=== PATIENT | male | born 1965 | race Caucasian/White ===

== ENCOUNTER 2018-07-22 01:17 | Emergency (ER) | payer BC ==
[2018-07-22 01:41] VITALS: TEMP 98.8
--- NOTE | 2018-07-22 02:21 | ED.PDOC ---
History of Present Illness - General Chief Complaint: Chemical Exposure/Inhalation Stated Complaint: possible carbon monoxide exposure Time Seen by Provider: 07/22/18 02:03 Source: patient, family Exam Limitations: no limitations - History of Present Illness Initial Comments: Pt and his were at home when their CO detector alarmed about midnight. Pt has had dizziness and mild headache Timing/Duration: this evening Severity: mild EENT Location: other Prearrival Treatment: no prearrival treatment Improving Factors: rest Worsening Factors: nothing Associated Symptoms: other - mild nausea Allergies/Adverse Reactions: Allergies peanuts Allergy (Uncoded 07/22/18 01:42) Home Medications: Ambulatory Orders Losartan Potassium 25 mg PO DAILY 01/14/16 Fluoxetine HCl [Fluoxetine Hydrochloride] 5 mg PO DAILY #4 tab 03/25/16 Ondansetron Odt [Zofran ODT] 8 mg PO Q8H PRN #12 tab 03/25/16 Review of Systems - Review of Systems Constitutional: Denies: chills, fever EENTM: States: blurred vision Respiratory: Denies: cough, short of breath Cardiology: Denies: chest pain Gastrointestinal/Abdominal: States: nausea. Denies: vomiting Genitourinary: States: no symptoms reported Musculoskeletal: States: no symptoms reported Skin: States: no symptoms reported Neurological: States: headache. Denies: paresthesia, tingling Endocrine: States: no symptoms reported Hematologic/Lymphatic: States: no symptoms reported Past Medical History (General) - Patient Medical History Hx Seizures: No Hx Stroke: No Hx Dementia: No Hx Asthma: No Hx of COPD: No Hx Cardiac Disorders: No Hx Congestive Heart Failure: No Hx Pacemaker: No Hx Hypertension: Yes Hx Thyroid Disease: No Hx Diabetes: No Hx Gastroesophageal Reflux: No Hx Renal Disease: No Hx Cancer: No Hx of HIV: No Hx Hepatitis C: No Hx MRSA: No Surgical History: no surgical history - Vaccination History Hx Tetanus, Diphtheria Vaccination: Yes - 2016 Hx Influenza Vaccination: No Hx Pneumococcal Vaccination: No - Social History Hx Tobacco Use: No - Female History Patient : No Family Medical History - Family History Father Living Status: Still Living Hx Family Hypertension: Yes Physical Exam - Physical Exam General Appearance: Alert, Anxious, Comfortable Eye Exam: bilateral normal Nasal Exam: normal inspection Throat Exam: pharynx normal Neck: non-tender, full range of motion, supple Cardiovascular/Respiratory: regular rate, rhythm, normal breath sounds, no respiratory distress Neurologic: alert, normal mood/affect, oriented x 3 Skin Exam: normal color, warm/dry Progress - Progress Progress: 07/22/18 02:38 Carboxyhgb was 0.2 % Departure - Departure Clinical Impression: Carbon monoxide exposure Disposition: Discharge to Home or Self Care Departure Forms: ED Discharge - Pt. Copy, Patient Portal Self Enrollment Instructions: DI for Inhalation Injury Referrals: Jay Jay Meehan MD [Primary Care Provider] - 1-2 Weeks Home Medications: Ambulatory Orders Losartan Potassium 25 mg PO DAILY 01/14/16 Fluoxetine HCl [Fluoxetine Hydrochloride] 5 mg PO DAILY #4 tab 03/25/16 Ondansetron Odt [Zofran ODT] 8 mg PO Q8H PRN #12 tab 03/25/16
[2018-07-22 02:43] VITALS: BP 133/78; O2SAT 97
== END 2018-07-22 02:44 | disposition home or self-care (01) ==
LOC: ER 01:17
DX: T58.91XA Toxic effect of carbon monoxide from unspecified source, accidental (unintentional), initial encounter (principal); R42 Dizziness and giddiness; R51 Headache; I10 Essential (primary) hypertension; Z79.899 Other long term (current) drug therapy; Y92.009 Unspecified place in unspecified non-institutional (private) residence as the place of occurrence of the external cause

== ENCOUNTER 2019-05-10 13:43 | Inpatient (IN) | payer BC ==
--- NOTE | 2019-05-10 14:06 | ED.PDOC ---
History of Present Illness - General Stated Complaint: fever Time Seen by Provider: 05/10/19 13:49 Source: patient, RN notes reviewed, Vital Signs reviewed Additional Information: this is a 53 year old with history of hypertension, patient presents with fever, cough, chills, nasal congestion, symptoms began on Saturday, patient went to a clinic and was prescribed antibiotics and even with abx. Patient fever has not gone down patient flu text was negative patient denies weight loss, never been incarcerated and no recent travels patient admits cough, chills and diaphoresis no neck pain no history of cigarettes or electronic cigs - History of Present Illness Timing/Duration: other - since saturday Fever Severity/Quality: greater than 102 F Associated Symptoms: cough, diaphoresis, muscle aches - chills Review of Systems - Review of Systems Constitutional: States: chills, diaphoresis, fever. Denies: malaise, weakness EENTM: Denies: eye pain, blurred vision, tearing, double vision, ear pain, ear discharge, nose pain, nose congestion, throat pain, throat swelling, mouth pain, mouth swelling Respiratory: States: cough. Denies: orthopnea, short of breath, stridor, wheez ing Cardiology: Denies: chest pain, edema, palpitations, syncope Gastrointestinal/Abdominal: Denies: abdominal pain, constipation, diarrhea, nausea, vomiting Genitourinary: Denies: discharge, dysuria, frequency, hematuria, pain Musculoskeletal: Denies: back pain, gout, joint swelling, muscle pain, muscle stiffness, neck pain Skin: Denies: change in color, dryness, lesions, lumps Neurological: Denies: anxiety, depressed, emotional problems, headache, numbness, paresthesia, seizure, tingling, tremors, weakness Endocrine: Denies: intolerance to cold, increased hunger, increased thirst, increased urine, unexplained weight gain, unexplained weight loss Hematologic/Lymphatic: Denies: anemia, blood clots, easy bleeding, easy bruising, swollen glands Past Medical History (General) - Patient Medical History Hx Seizures: No Hx Stroke: No Hx Dementia: No Hx Asthma: No Hx of COPD: No Hx Cardiac Disorders: No Hx Congestive Heart Failure: No Hx Pacemaker: No Hx Hypertension: Yes Hx Thyroid Disease: No Hx Diabetes: No Hx Gastroesophageal Reflux: No Hx Renal Disease: No Hx Cancer: No Hx of HIV: No Hx Hepatitis C: No Hx MRSA: No - Vaccination History Hx Tetanus, Diphtheria Vaccination: Yes - 2016 Hx Influenza Vaccination: No Hx Pneumococcal Vaccination: No - Social History Hx Tobacco Use: No - Female History Patient : No Family Medical History - Family History Father Living Status: Still Living Hx Family Hypertension: Yes Physical Exam - Physical Exam General Appearance: Alert, Well Developed, Well Groomed, Well Hydrated, Well Nourished Eye Exam: bilateral normal ENT Exam: normal ENT inspection, hearing grossly normal, TMs normal, pharynx normal, nasal congestion Neck: non-tender, full range of motion, supple, normal inspection, trachea midline Respiratory: chest non-tender, lungs clear, normal breath sounds, no respiratory distress, no accessory muscle use Cardiovascular/Chest: normal peripheral pulses, regular rate, rhythm, no edema, no gallop, no JVD, no murmur Gastrointestinal/Abdominal: normal bowel sounds, non tender, soft, no organomegaly, no pulsatile mass, abnormal bowel sounds Extremity: normal range of motion, non-tender, normal inspection, no pedal edema, no calf tenderness Neurologic: customer trainer II-XII nml as tested, no motor/sensory deficits, alert, normal mood/affect, oriented x 3 Skin Exam: normal color Progress - Progress Progress: 05/10/19 14:40 this patient presents with fever, and cough and body aches, and diaphoresis, patient have been on antibiotics for 3 days and no improvement. Im concerned for viral syndrome, and even thought his flu was negative, I will check for flu again, patient has no meningeal signs and no risk factors for tuberculosis. Patient did not exhibit any SIRS by vitals signs lactic and blood cultures will be also ordered. patient was no leukocytosis, but has very significant infiltrates on xrays with almost two third of the chest, I did not visualize any pleural effusions, I immediately ordered Rocephin and Zithromax and consult the case with hospitalist I think that It will benefit the patient to at least stay in for IV abx and with on blood cultures sensitivities, this patient was already taking abx and no the infiltrate on the left lung is very significant Departure - Departure Clinical Impression: Community acquired bacterial pneumonia Disposition: Admit Patient Home Medications: Ambulatory Orders Losartan Potassium 25 mg PO DAILY 01/14/16 Fluoxetine HCl [Fluoxetine Hydrochloride] 5 mg PO DAILY #4 tab 03/25/16 Decision To Admit - Decistion To Admit Decision to Admit Reason: Admit from ER Decision to Admit Date: 05/10/19 Decision to Admit Time: 14:51
[2019-05-10] MEDS ORDERED: cefTRIAXone SODIUM 1 GM in SODIUM CHL 0.9% 50ML MIN-BAG+ 50 ML IVPB ONE (14:11)
[2019-05-10] MEDS ORDERED: AZITHROMYCIN IV 500 MG in SODIUM CHLORIDE 0.9% 250ML 250 ML IVPB ONE (14:13)
[2019-05-10] MEDS ORDERED: AZITHROMYCIN IV 500 MG VIAL IVPB ONE (14:16)
[2019-05-10] MEDS ORDERED: SODIUM CHLORIDE 0.9% 250ML 250 ML ONE (14:16)
[2019-05-10] MEDS ORDERED: cefTRIAXone SODIUM 1 GM VIAL ONE (14:16)
[2019-05-10] MEDS ORDERED: SODIUM CHL 0.9% 50ML MIN-BAG+ 50 ML IVPB ONE (14:16)
[2019-05-10] MEDS ORDERED: SODIUM CHL 0.9% 50ML VIAL 9 ML, ALBUTEROL SULFATE NEBS 7.5 MG, IPRATROPIUM BROMIDE NEBS... NEB ONE ×3 (14:26)
[2019-05-10] MEDS ORDERED: IPRATROPIUM/ALBUTEROL 3 ML VIAL NEB ONE (14:26)
[2019-05-10] MEDS ORDERED: ACETAMINOPHEN 500 MG TAB PO ONE (16:43)
--- NOTE | 2019-05-10 16:47 | HP ---
SUPERVISING PHYSICIAN: Padilla Wilkes MD CHIEF COMPLAINT: Cough, shortness of breath. HISTORY OF PRESENT ILLNESS: Mr. Carmona is a 53-year-old male patient who presented to the Emergency Room last night complaining of some cough, congestion and fever. He does have a history of hypertension. He noted his symptoms began last Saturday. He had gone to the clinic on Saturday and was treated for a sinus infection with cefdinir. He noted he continued to run a fever over the weekend. His initial flu test was negative. He has no history of smoking and no major medical history other than hypertension and he is not complaining of any chest pain. His temperature is noted to be subjectively measured at 102 at home and was associated with cough, diaphoresis and chills. His laboratory studies in the Emergency Room showed white count 9,800 with a left shift. Chemistries showed a mild hyponatremia with a sodium of 132, AST elevated at 75, ALT 93. Creatinine 0.5. His lactic acid was normal at 1.4. He had a chest x-ray and per radiologic interpretation showed multifocal left pneumonia. Vital signs initially on admission showed temperature 103 with pulse 81, blood pressure 121/71, saturation 91% on room air, respirations 22 to 24. Given that he had been on 3 days of cefdinir and radiographic studies showed multifocal pneumonia with a significant fever although negative flu, the patient is going to be placed in observation for initiation of parenteral antibiotics and further treatment and evaluation of community acquired pneumonia having failed to respond to outpatient treatment plan. He was placed in observation in stable condition. PAST MEDICAL HISTORY: 1. Hypertension. 2. Anxiety. PAST SURGICAL HISTORY: 1. Surgery on his left foot as a child. HOME MEDICATIONS: 1. Multivitamin daily. 2. Vitamin D4 5000 units daily. 3. Fish oil 1200 mg 2 tablets b.i.d. 4. Zocor 20 mg at bedtime. 5. Prozac 20 mg daily. 6. Losartan 25 mg daily. ALLERGIES: PEANUTS. NO KNOWN DRUG ALLERGIES. FAMILY HISTORY: Father still living at age 78 and has history of COPD and hypertension. Mother at age 63 secondary to question of pulmonary embolism. He has one sister who is healthy and he has one son who has asthma. SOCIAL HISTORY: The patient works for [employer]. He has never smoked tobacco, does not drink alcohol and does not use illicit drugs. He is and lives in [place], [place]. REVIEW OF SYSTEMS: CONSTITUTIONAL: Positive for general malaise, fever, chills and weakness. HEENT: Negative for sore throats, earaches, nasal congestion, headaches, vision changes. RESPIRATORY: Positive for cough. Denies any orthopnea or shortness of breath other than with exertion. No stridor or wheezing. CARDIOVASCULAR: Negative for chest pain, palpitations or syncopal episodes. GASTROINTESTINAL: Negative for nausea, vomiting, diarrhea, constipation or abdominal pain. GENITOURINARY: Negative for dysuria, hematuria, polyuria. MUSCULOSKELETAL: Positive for general muscle weakness. Denies any back pain, joint swelling or neck pain. SKIN: Denies any unexplained changes, lesions, rashes, moles or sores. NEUROLOGIC: He does have anxiety, but denies any headaches, paresthesias, syncopal episodes, ataxia or other neurologic deficits. HEMATOLOGIC: Denies any easy bruising, unexplained bleeding or transfusion reactions. PHYSICAL EXAMINATION: VITAL SIGNS: On admission, temperature 103, pulse 81, blood pressure 123/71, respirations 18, saturation 91% on room air. GENERAL: The patient is resting comfortably, appears to be in no acute distress. He does look unwell overall, but well hydrated, well nourished and alert. HEENT: Tympanic membranes clear bilaterally. Oropharynx is pink, moist without any lesions. There is some mild nasal congestion. NECK: Supple, nontender with full range of motion. No jugular venous distention noted. RESPIRATORY: Lung sounds are fairly clear on the right. Left with notable rhonchi heard in the upper and lower lobes, more prominent in the posterior aspect. No rales or wheezing noted. Both lungs are diminished bilaterally towards the bases. CARDIOVASCULAR: Regular rate and rhythm without any appreciable murmurs, gallops, or rubs. ABDOMEN: Soft, nontender. Positive bowel sounds. EXTREMITIES: There is no cyanosis, clubbing or edema. NEUROLOGIC: Cranial nerves II-XII are grossly intact. Facial features are symmetrical. Extraocular movements are within normal limits. There is no nystagmus noted. The patient is alert and oriented times three. SKIN: Warm, pink and dry. LABORATORY: White count 9,800, hemoglobin 14.3, hematocrit 41.5, platelet count 207,000. Differential did show a left shift. Coagulation studies showed a barely elevated D-dimer at 441. Chemistries showed sodium 132, potassium 3.7, creatinine 0.91, glucose 114, lactic acid 1.4. ALT and AST both elevated with ALT 93, AST 75. All other liver functions within normal limits. Calcium normal at 9.4. Lactic acid 1.4 Urinalysis just showed 15 ketones, otherwise within normal limits. MICROBIOLOGY: Blood cultures pending. Influenza A and B by PCR negative. RADIOLOGY: Chest x-ray showed left sided multifocal pneumonia. ASSESSMENT: 1. Left sided multifocal pneumonia, community acquired, having failed to respond to outpatient treatment plan. 2. Hypertension, controlled. 3. Electrolyte imbalance to include hyponatremia. 4. Anxiety. PLAN: Mr. Carmona is going to be placed in observation for initiation of parenteral antibiotics to include Rocephin and azithromycin. He will be on aggressive bronchial hygiene. He will be on DVT prophylaxis per protocol. We will review his medications and resume those as appropriate to care. His blood cultures are pending. We will anticipate his length of stay to be one to two days. We will provide Toradol, Motrin and Tylenol for pain, discomfort and fever. Until the patient can transition to outpatient management, we will continue to monitor and treat as needed. #[id number] [facility]
[2019-05-10] MEDS ORDERED: MAGNESIUM HYDROXIDE 30 ML UD PO PRN (16:50)
[2019-05-10] MEDS ORDERED: IBUPROFEN 400 MG TAB PO PRN (16:50)
[2019-05-10] MEDS ORDERED: ALBUTEROL SULFATE 2.5 MG/3 ML VIAL NEB PRN (16:50)
[2019-05-10] MEDS ORDERED: ONDANSETRON INJ 4 MG/2 ML VIAL IV PRN (16:50)
[2019-05-10] MEDS ORDERED: TEMAZEPAM 15 MG CAP PO PRN (16:50)
[2019-05-10] MEDS ORDERED: SODIUM CHLORIDE 0.9% (FLUSH) 10 ML SYG IV PRN (16:50)
[2019-05-10] MEDS ORDERED: IV SET AND CAP CHANGE INJ INJ SCH (17:00)
[2019-05-10] MEDS ORDERED: OMEPRAZOLE CAP 20 MG CAP ONE (19:43)
[2019-05-10] MEDS: IPRATROPIUM/ALBUTEROL 3 ML VIAL NEB SCH (20:30)
[2019-05-10] MEDS: ENOXAPARIN SODIUM 40 MG/0.4 ML SYG SUBCU SCH (20:42)
[2019-05-10] MEDS: OSELTAMIVIR 75 MG CAP PO SCH (20:57)
[2019-05-10] MEDS: SIMVASTATIN 20 MG TAB PO SCH (20:57)
[2019-05-10] MEDS: ACETAMINOPHEN 325 MG TAB PO PRN (23:36)
[2019-05-11] MEDS: OMEPRAZOLE CAP 20 MG CAP PO SCH (06:22)
--- NOTE | 2019-05-11 07:04 | RAD ---
EXAM: XR Chest, 2 Views CLINICAL HISTORY: Pneumonia TECHNIQUE: Frontal and lateral views of the chest. COMPARISON: 05/10/2019. FINDINGS: Lungs: There is persistent but decreased confluence of airspace consolidation in the left upper and lower lobes. Stable mild atelectasis right base. Pleural space: Unremarkable. No pneumothorax. Heart: Unremarkable. No cardiomegaly. Mediastinum: Unremarkable. Bones/joints: Unremarkable. IMPRESSION: Persistent but improved multifocal left pneumonia. Continued follow-up until resolution needed. Electronically signed by: Sophy Herrera MD 05/11/2019 7:03 AM GAS STATION OPERATOR
[2019-05-11] MEDS ORDERED: SODIUM CHL 0.9% 50ML MIN-BAG+ 50 ML IVPB ONE (07:16)
[2019-05-11] MEDS ORDERED: LOSARTAN POTASSIUM 25 MG TAB ONE (07:16)
[2019-05-11] MEDS ORDERED: cefTRIAXone SODIUM 1 GM VIAL ONE (07:17)
[2019-05-11] MEDS: AZITHROMYCIN 250 MG TAB PO SCH (08:08)
[2019-05-11] MEDS: FLUoxetine HCL 20 MG CAP PO SCH (08:08)
[2019-05-11] MEDS: cefTRIAXone SODIUM 1 GM in SODIUM CHL 0.9% 50ML MIN-BAG+ 50 ML IVPB SCH (08:09)
[2019-05-11] MEDS: OSELTAMIVIR 75 MG CAP PO SCH ×2 (08:09→20:15)
[2019-05-11] MEDS: IPRATROPIUM/ALBUTEROL 3 ML VIAL NEB SCH ×4 (08:54→20:26)
[2019-05-11] MEDS ORDERED: LOSARTAN POTASSIUM 25 MG PO SCH (09:00)
--- NOTE | 2019-05-11 18:02 | PN ---
SUPERVISING PHYSICIAN: Marshal Patiño MD DATE: 05/11/19 SUBJECTIVE: The patient is still having some shortness of breath. He has been tachypneic overnight. He did run 100.4 fever last night compared to admission of 103. He has not had any nausea or vomiting. He is producing quite a bit of sputum. He denied any chest pains. OBJECTIVE: GENERAL: The patient is resting comfortably. He does obviously not feel well, but appears to be in no acute distress. CHEST: Lung sounds diminished towards the bases with notable rhonchi heard most of the left lung field and no wheezing or rales. HEART: Regular rate and rhythm. ABDOMEN: Soft, nontender. Positive bowel sounds. EXTREMITIES: No edema. NEUROLOGIC: Alert and oriented times three. LABORATORY: White count 9,400, hemoglobin 13.4, hematocrit 38.5, platelet count 191,000. Differential is so far without a left shift. Chemistries show sodium improved to 134, calcium 3.7, BUN 50, creatinine 0.74, glucose 110, calcium 9.0. Liver functions still show an elevation with AST 78, ALT 100. RADIOLOGY: Chest x-ray this morning per radiologic interpretation shows persistent, but improved multifocal left pneumonia. ASSESSMENT: 1. Left sided multifocal pneumonia, community acquired, having failed outpatient treatment plan on cefdinir. 2. Hypertension, controlled. 3. Electrolyte imbalance to include hyponatremia, showing improvement, probably due to underlying left sided pneumonia. 4. Elevated AST and ALT of uncertain etiology, possibly related to acute viral infection with no history of significant alcohol usage. 5. Anxiety. PLAN: The patient is still tachypneic at times and desaturating on room air. Therefore, given the significant findings of multifocal pneumonia on the left side in a fairly healthy patient, especially at age 53, we will change him to a full admission because I think he would benefit from an additional 24 to 48 hours of parenteral antibiotics and aggressive pulmonary hygiene. We will plan to follow his labs with repeat BMP in the morning. I Will hold off on chest x- ray as he was showing some improvement this afternoon. He is on Tamiflu and antibiotic coverage with Rocephin and azithromycin. He is on aggressive pulmonary hygiene with CPT and EzPAP and oxygen as needed. I would anticipate he can probably discharge either later tomorrow or the next as long as he continues to be without fever for at least 48 hours after being on the parenteral antibiotics. Until the patient can transition to outpatient management, we will continue to monitor and treat as needed. #[id number] [facility]
[2019-05-11] MEDS: ENOXAPARIN SODIUM 40 MG/0.4 ML SYG SUBCU SCH (20:15)
[2019-05-11] MEDS: SIMVASTATIN 20 MG TAB PO SCH (20:15)
[2019-05-11] MEDS: ACETAMINOPHEN 325 MG TAB PO PRN (20:55)
[2019-05-12] MEDS: OMEPRAZOLE CAP 20 MG CAP PO SCH (06:03)
[2019-05-12] MEDS ORDERED: LOSARTAN POTASSIUM 25 MG TAB ONE (06:52)
[2019-05-12] MEDS ORDERED: SODIUM CHL 0.9% 50ML MIN-BAG+ 50 ML IVPB ONE (06:52)
[2019-05-12] MEDS ORDERED: cefTRIAXone SODIUM 1 GM VIAL ONE (06:53)
[2019-05-12] MEDS: IPRATROPIUM/ALBUTEROL 3 ML VIAL NEB SCH ×4 (07:56→21:03)
[2019-05-12] MEDS: AZITHROMYCIN 250 MG TAB PO SCH (08:26)
[2019-05-12] MEDS: LOSARTAN POTASSIUM 25 MG TAB PO SCH (08:26)
[2019-05-12] MEDS: OSELTAMIVIR 75 MG CAP PO SCH ×2 (08:26→20:53)
[2019-05-12] MEDS: FLUoxetine HCL 20 MG CAP PO SCH (08:26)
[2019-05-12] MEDS: cefTRIAXone SODIUM 1 GM in SODIUM CHL 0.9% 50ML MIN-BAG+ 50 ML IVPB SCH (08:27)
[2019-05-12] MEDS ORDERED: methylPREDNISolone SODIUM SUC 125 MG/2 ML VIAL IV ONE (11:49)
[2019-05-12] MEDS ORDERED: BENZONATATE PERLES 100 MG CAP PO PRN (11:49)
[2019-05-12] MEDS: ACETAMINOPHEN 325 MG TAB PO SCH ×3 (12:21→23:55)
[2019-05-12] MEDS: guaiFENesin ER TAB 600 MG TAB PO SCH ×2 (12:21→20:53)
--- NOTE | 2019-05-12 13:10 | PN ---
SUPERVISING PHYSICIAN: Marshal Patiño MD DATE: 05/12/19 SUBJECTIVE: The patient is lying in bed watching television. He continues to have sweating. It wakes him up during the night. He said he feels like his temperature is going up and down. He still has some shortness of breath and is requiring oxygen, but other than his coughing, his shortness of breath has improved. OBJECTIVE: VITAL SIGNS: T-max 24 hours is 100. Heart rate 71. Blood pressure 118/63. Respiratory rate 24. O2 saturation 93% on 1 liter nasal cannula. It drops to the upper 80s on room air. RESPIRATORY: A few expiratory wheezes in the apices, diminished at the bases, slightly tachypneic and has to speak in 3 to 4 word phrases. CARDIAC: Regular rate and rhythm. GASTROINTESTINAL: Abdomen is soft, nondistended, nontender. Bowel sounds are positive. NEUROLOGIC: Awake, alert and oriented times three. LABORATORY: Blood culture shows no growth after 24 hours. All other labs and films have been reviewed via the EMR. ASSESSMENT: 1. Left sided multifocal pneumonia, community acquired, having failed outpatient treatment plan on cefdinir. 2. Hypertension, controlled. 3. Electrolyte imbalance to include hyponatremia, showing improvement, probably due to underlying left sided pneumonia. 4. Elevated AST and ALT of uncertain etiology, possibly related to acute viral infection with no history of significant alcohol usage. 5. Anxiety. PLAN: We will continue present supportive care. I have ordered lab and chest x-ray in the morning. We will continue aggressive pulmonary hygiene. I have given him one dose of steroids and if his breathing improves, we may have to add a steroid taper. I have also given him some scheduled guaifenesin. We will continue to monitor his cultures closely. He will continue on his azithromycin and Rocephin. I encouraged him to get up and walk frequently in the hallways. We will continue to monitor the patient closely and follow as needed. #[id number] [facility]
[2019-05-12] MEDS: IBUPROFEN 400 MG TAB PO SCH ×2 (15:07→20:53)
[2019-05-12] MEDS: SIMVASTATIN 20 MG TAB PO SCH (20:53)
[2019-05-12] MEDS: ENOXAPARIN SODIUM 40 MG/0.4 ML SYG SUBCU SCH (20:53)
[2019-05-13] MEDS: IBUPROFEN 400 MG TAB PO SCH (02:50)
[2019-05-13] MEDS: ACETAMINOPHEN 325 MG TAB PO SCH (05:52)
[2019-05-13] MEDS: OMEPRAZOLE CAP 20 MG CAP PO SCH (05:53)
[2019-05-13] MEDS: IPRATROPIUM/ALBUTEROL 3 ML VIAL NEB SCH ×2 (08:40→13:06)
--- NOTE | 2019-05-13 08:49 | RAD ---
XR CHEST 2 VIEWS HISTORY: 53 years Male pna COMPARISON: May 11, 2019. TECHNIQUE: PA and lateral views of the chest. FINDINGS: Lungs: Continued interval improvement in now mild airspace disease in the mid to lower left lung. Residual subsegmental atelectasis in the left midlung. No definite pleural effusion. No evidence of a pneumothorax. Persistent perihilar and interstitial prominence and peribronchial cuffing bilaterally compatible with reactive airway changes. Heart/Mediastinum: Cardiomediastinal silhouette unchanged. Bones: No acute abnormality detected. IMPRESSION: Continued improvement of previously demonstrated left lung pneumonia. Electronically signed by: Kevin Pantoja MD 05/13/2019 8:47 AM SECTION MAINTAINER
[2019-05-13] MEDS ORDERED: SODIUM CHL 0.9% 50ML MIN-BAG+ 50 ML IVPB ONE (09:19)
[2019-05-13] MEDS ORDERED: cefTRIAXone SODIUM 1 GM VIAL ONE (09:19)
[2019-05-13] MEDS: cefTRIAXone SODIUM 1 GM in SODIUM CHL 0.9% 50ML MIN-BAG+ 50 ML IVPB SCH (09:39)
[2019-05-13] MEDS: AZITHROMYCIN 250 MG TAB PO SCH (09:39)
[2019-05-13] MEDS: LOSARTAN POTASSIUM 25 MG TAB PO SCH (09:39)
[2019-05-13] MEDS: guaiFENesin ER TAB 600 MG TAB PO SCH (09:39)
[2019-05-13] MEDS: FLUoxetine HCL 20 MG CAP PO SCH (09:40)
[2019-05-13] MEDS: OSELTAMIVIR 75 MG CAP PO SCH (09:42)
[2019-05-13] MEDS ORDERED: methylPREDNISolone TAB 4 MG TAB PO SCH (11:00)
[2019-05-13 12:56] VITALS: BP 123/74
[2019-05-13 14:32] VITALS: O2SAT 94
[2019-05-13 15:56] VITALS: TEMP 97.8
--- NOTE | 2019-05-25 08:55 | DS ---
SUPERVISING PHYSICIAN: Marshal Patiño MD DISCHARGE DIAGNOSES: 1. Left sided multifocal pneumonia, community acquired, having failed outpatient treatment plan on Cefdinir. 2. Hypertension, controlled. 3. Electrolyte imbalance to include hyponatremia, showing improvement, most likely due trouble left-sided pneumonia. 4. Elevated AST and ALT of uncertain etiology, possibly related to an acute viral infection with no history of significant alcohol usage. 5. Anxiety. HISTORY OF PRESENT ILLNESS: This is a 53-year-old male patient who presented to the Emergency Room after complaining of a cough, congestion and fever. He has a history of hypertension. His symptoms began Saturday prior to admission. He had been treated for a sinus infection with the previous Saturday and have been given Cefdinir. He continued to run a fever over the weekend. His initial flu test was negative. He has no history of smoking and no major medical history other than hypertension. There were no complaints of any chest pain. His temperature subjectively was 102 at home. His laboratory studies in the Emergency Room showed a white count 9,800 with a left shift. Chemistries showed a mild hyponatremia with a sodium of 132, AST at 75, ALT 95. Creatinine 0.5. His lactic acid was normal at 1.4. Chest x-ray per radiologic interpretation showed multifocal left pneumonia. Vital signs on admission showed a temperature 103 with pulse 81, blood pressure 121/71, oxygen saturation 91% on room air, respirations 22 to 24. Given he had been on 3 days of Cefdinir and his x-rays showed multifocal pneumonia as well as having a significant fever, although he had a negative flu swab, the patient was placed in observation for initiation of parenteral antibiotics and further treatment for evaluation of community- acquired pneumonia having failed to respond to outpatient treatment plan. Initially, he was placed in observation in stable condition. HOSPITAL COURSE: He was initially started on the pneumonia protocol, given antibiotics including Rocephin and azithromycin. He had aggressive pulmonary hygiene. He was given DVT prophylaxis per protocol. His home medications were restarted. Blood cultures were also done in the Emergency Room. He was given Toradol, Motrin and Tylenol for pain and discomfort. He continued to have shortness of breath as well as tachypnea and he continued to run a temperature 36 hours after admission that was 100.4. He was then changed to full admission to give him an additional 24 to 48 hours of parenteral antibiotics as well as aggressive pulmonary hygiene. He was also given Tamiflu and initially it was difficult to get him off of his oxygen. He required oxygen for 48 to 72 hours after admission. He continued with aggressive pulmonary hygiene and the last 24 hours that he was in the hospital he improved greatly, although he did continue to have some complaints of diaphoresis, he did not have a temperature. He had one dose of IV steroids and then given oral steroids. He was ordered to walk in the hallways and during his last 24 hours in the hospital, he did not require oxygen. Today, he has been without oxygen for almost 24 hours and his vital signs are stable. His laboratory have mostly normalized and he will be discharged home today in stable condition. LABORATORY: WBC 9,800 on admission, on discharge 13,400, also he had steroids. His hemoglobin and hematocrit remained stable at 13.3 and 38.6. His sodium stabilized to 137. The remainder of his electrolytes remained stabilized. On discharge, his AST is 40, ALT 85. His other liver function tests were within normal limits. Urinalysis was unremarkable. Preliminary blood cultures showed o growth. Sputum culture showed normal norma. His followup chest x-ray showed improvement of the previously demonstrated left lung pneumonia. DISCHARGE PLAN: The patient will be discharged home today in stable condition. He is to resume his previous diet and continue his home medications as previously ordered. He is to followup with his PCP who is in the [facility] within the next one to two weeks. In addition to his home medications which includes Cefdinir, he is to continue with the Medrol Dosepak taper as well as four additional days of azithromycin. He is to followup with his PCP or return to the hospital for any problems or complications. DISCHARGE MEDICATIONS: 1. Benzonatate. 2. Cefdinir. 3. Fluoxetine. 4. Simvastatin. 5. Fish oil. 6. Vitamin D. 7. Multivitamins with minerals. 8. Azithromycin. 9. Guaifenesin. 10. Medrol Dosepak. #[id number] [facility]
== END 2019-05-13 15:10 | disposition home or self-care (01) | DRG 194 ==
LOC: ER 13:43 → MS 16:45 → OBSVTOIN 05-11 12:41
PROVIDERS: ADMIT Nurse Practitioner Family; ATTEND Nurse Practitioner Acute Care
DX: J18.9 Pneumonia, unspecified organism (principal); E87.1 Hypo-osmolality and hyponatremia; I10 Essential (primary) hypertension; F41.9 Anxiety disorder, unspecified; R74.8 Abnormal levels of other serum enzymes; Z83.6 Family history of other diseases of the respiratory system; Z79.899 Other long term (current) drug therapy